=== PATIENT | male | born 1975 | race African-American/Black ===

== ENCOUNTER 2020-12-23 15:11 | Emergency (ER) | payer OTHER ==
[~2020-12-23] VITALS: Ht 177.8 cm; Wt 83.9 kg
[2020-12-23 17:00] VITALS: BP 150/73
== END 2020-12-23 17:01 | disposition home or self-care (01) ==
LOC: M.ERS 15:11
DX: U07.1 COVID-19 (principal)

== ENCOUNTER 2020-12-25 13:12 | Emergency (ER) | payer OTHER ==
[~2020-12-25] VITALS: Ht 177.8 cm; Wt 86.2 kg
[2020-12-25] MEDS ORDERED: BACTRIM DS TAB1 EACH PO (13:31)
[2020-12-25] MEDS ORDERED: CEPHALEXIN500 MG PO (13:31)
[2020-12-25] MEDS ORDERED: HYDROCODON-ACE1 EAC7 PO (13:31)
[2020-12-25 14:05] VITALS: BP 154/88
== END 2020-12-25 14:06 | disposition home or self-care (01) ==
LOC: M.ERS 13:12
DX: S60.812A Abrasion of left wrist, initial encounter (principal); L03.114 Cellulitis of left upper limb; W57.XXXA Bitten or stung by nonvenomous insect and other nonvenomous arthropods, initial encounter; Y93.9 Activity, unspecified; Y92.89 Other specified places as the place of occurrence of the external cause; Y99.8 Other external cause status

== ENCOUNTER 2021-01-01 11:33 | Emergency (ER) | payer OTHER ==
[~2021-01-01] VITALS: Ht 177.8 cm; Wt 86.2 kg
[~2021-01-01 11:33] MED LIST: BACTRIM DS TAB1 EACH PO; CEPHALEXIN500 MG PO; HYDROCODON-ACE1 EAC7 PO
[2021-01-01 12:00] VITALS: BP 129/81
== END 2021-01-01 12:01 | disposition home or self-care (01) ==
LOC: M.ERS 11:33
DX: U07.1 COVID-19 (principal)